=== PATIENT | female | born 1975 ===

== ENCOUNTER 2018-01-02 15:51 | Emergency (ER) | payer MEDICAID, OTHER ==
[2018-01-02 16:40] VITALS: BMI 35.6
[2018-01-02 16:42] VITALS: BP 129/91; PULSE 86; RESP 18; O2SAT 100
[2018-01-02 16:44] VITALS: TEMP 98.5
--- NOTE | 2018-01-02 17:30 | ED PDOC ---
Arrival/HPI - General Chief Complaint: Pain, Chronic Time Seen by Provider: 01/02/18 16:27 Historian: Patient - History of Present Illness Narrative History of Present Illness (Text): 01/02/18 17:29 This 42 yo female with a pmh chronic back pain, presents to this ED for medication refill. Patient stated she recently moved to [place]. Patient stated she take Gabapentin, and Tramadol for her chronic back pain. Patient denies recent trauma, fever, illegal IV drug use, recent trauma, weakness, paresthesias , GI/ incontinence, saddle anesthesias, urinary retention, skin rash, urinary symptoms, or abnormal gait. Time/Duration: Other (see hpi) Quality: Aching Context: Home Past Medical History - Provider Review Nursing Documentation Reviewed: Yes - Infectious Disease Hx of Infectious Diseases: None - Musculoskeletal/Rheumatological Hx Back Pain: Yes - Psychiatric Hx Substance Use: No - Surgical History Hx Section: Yes (1) Other/Comment: ovary - Anesthesia Hx Anesthesia: Yes Hx Anesthesia Reactions: No Hx Malignant Hyperthermia: No Family/Social History - Physician Review Nursing Documentation Reviewed: Yes Family/Social History: Other (noncontributory) Smoking Status: Heavy Smoker > 10 Cigarettes Daily Hx Alcohol Use: No Hx Substance Use: No Allergies/Home Meds Allergies/Adverse Reactions: Allergies No Known Allergies Allergy (Verified 01/02/18 16:40) Home Medications: Home Meds Medication Instructions Recorded Confirmed Gabapentin [Neurontin] 1 tab PO TID 01/02/18 01/02/18 traMADol [Ultram] 1 tab PO BID PRN 01/02/18 01/02/18 Review of Systems - Review of Systems Constitutional: Normal. absent: Fatigue, Weight Change, Fevers Eyes: Normal ENT: Normal. absent: Sore Throat Respiratory: Normal. absent: SOB Cardiovascular: Normal. absent: Chest Pain, Palpitations Gastrointestinal: Normal. absent: Abdominal Pain, Nausea, Vomiting Genitourinary Female: Normal. absent: Dysuria, Frequency, Hematuria, Urine Output Changes, Vaginal Bleeding, Vaginal Discharge Musculoskeletal: Back Pain. absent: Neck Pain Skin: Normal. absent: Rash Neurological: Normal. absent: Headache, Dizziness, Focal Weakness, Gait Changes , Speech Changes, Facial Droop, Disequilibrium, Seizure Endocrine: Normal Hemo/Lymphatic: Normal Psychiatric: Normal Physical Exam Vital Signs Temp Pulse Resp BP Pulse Ox 01/02/18 16:41 98.5 F 86 18 129/91 H 100 Temperature: Afebrile Blood Pressure: Normal Pulse: Regular Respiratory Rate: Normal Appearance: Positive for: Well-Appearing, Non-Toxic, Comfortable Pain Distress: None Mental Status: Positive for: Alert and Oriented X 3 - Systems Exam Head: Present: Atraumatic, Normocephalic Pupils: Present: PERRL Extroacular Muscles: Present: EOMI Conjunctiva: Present: Normal Mouth: Present: Moist Mucous Membranes Neck: Present: Normal Range of Motion Respiratory/Chest: Present: Clear to Auscultation, Good Air Exchange. No: Respiratory Distress, Accessory Muscle Use Cardiovascular: Present: Regular Rate and Rhythm, Normal S1, S2. No: Murmurs Abdomen: No: Tenderness, Distention, Peritoneal Signs Back: Present: Normal Inspection, Paraspinal Tenderness (mild b/l paravertebral tenderness. No vertebral point tenderness. No vertebral step off. No rash). No: CVA Tenderness, Midline Tenderness, Pain with Leg Raise Upper Extremity: Present: Normal Inspection, Normal ROM, NORMAL PULSES, Neurovascularly Intact, Capillary Refill < 2s. No: Cyanosis, Edema Lower Extremity: Present: Normal Inspection, NORMAL PULSES, Normal ROM, Capillary Refill < 2 s. No: Edema, CALF TENDERNESS Neurological: Present: GCS=15, CN II-XII Intact, Speech Normal, Motor Func Grossly Intact, Normal Sensory Function, Normal Cerebellar Funct, Gait Normal, Memory Normal, Other (No neuro focal deficits. Patient has a normal gait.) Skin: Present: Warm, Dry, Normal Color. No: Rashes Psychiatric: Present: Alert, Oriented x 3, Normal Insight, Normal Concentration Medical Decision Making ED Course and Treatment: 01/02/18 17:58 Re-evaluation. Patient feels better. Discussed results and plan with patient who expresses understanding. All questions answered and there is agreement with the plan to discharge home with instructions. Patient stable for discharge. Return if symptoms persist or worsen. Patient was recommended to f/u pain management doctor for chronic back pain. I agreed to refill pain medication for a coupl days only this time. She agreed with plan. Re-evaluation Time: 17:57 Reassessment Condition: Re-examined, Improved - Medication Orders Current Medication Orders: Ketorolac Tromethamine (Toradol) 30 mg IM STAT STA Stop: 01/02/18 17:48 Tramadol HCl (Ultram) 50 mg PO STAT STA Stop: 01/02/18 17:47 Disposition/Present on Arrival - Present on Arrival Any Indicators Present on Arrival: No History of DVT/PE: No History of Uncontrolled Diabetes: No Urinary Catheter: No History of Decub. Ulcer: No History Surgical Site Infection Following: None - Disposition Have Diagnosis and Disposition been Completed?: Yes Diagnosis: Chronic back pain, Medication refill Disposition: HOME/ ROUTINE Disposition Time: 17:59 Patient Plan: Discharge Condition: GOOD Discharge Instructions (ExitCare): Chronic Pain (DC) Additional Instructions: Call pain management doctor for follow up visit in 1-2 days. Take medication as instructed. Do not drive or operate machinery if you take Tramadol, or Robaxin for at least 12 hours. Prescriptions: Gabapentin 300 mg PO TID #10 capsule Methocarbamol [Robaxin-750] 750 mg PO DAILY #10 tab traMADol [Ultram] 50 mg PO Q4H PRN #10 tab PRN Reason: Pain, Severe (8-10) Referrals: Howard Orta MD [Staff Provider] - Follow up with primary [facility] [Outside] - Follow up with primary [facility] [Outside] - Follow up with primary Forms: [facility] (Chinese)
== END 2018-01-02 18:15 | disposition home or self-care (01) ==
LOC: MERGE 15:51 → ED 15:51
DX: Z76.0 Encounter for issue of repeat prescription (principal); G89.29 Other chronic pain; M54.9 Dorsalgia, unspecified; F17.210 Nicotine dependence, cigarettes, uncomplicated
CPT/HCPCS: 81025; 96372; 99283; J1885